=== PATIENT | male | born 1980 | race African-American/Black ===

== ENCOUNTER 2025-06-17 18:00 | Emergency (ER) | payer OTHER ==
[~2025-06-17] VITALS: Ht 185.4 cm; Wt 98.0 kg
[2025-06-17] MEDS ORDERED: MECLIZINE HCL25 MG PO (18:20)
[2025-06-17] MEDS ORDERED: MIRTAZAPINE15 MG PO (18:21)
[2025-06-17] MEDS ORDERED: CYCLOBENZAPRINE10 MG PO (19:42)
[2025-06-17] MEDS ORDERED: IBU800 MG PO (19:42)
[2025-06-17] MEDS ORDERED: CYCLOBENZAPRINE HCL 10 MG TAB PO ONE (19:45)
[2025-06-17] MEDS ORDERED: IBUPROFEN 800 MG TAB PO ONE (19:45)
[2025-06-17 20:02] VITALS: BP 131/103
== END 2025-06-17 20:04 | disposition home or self-care (01) ==
LOC: ED 18:00
DX: S46.911A Strain of unspecified muscle, fascia and tendon at shoulder and upper arm level, right arm, initial encounter (principal); W01.0XXA Fall on same level from slipping, tripping and stumbling without subsequent striking against object, initial encounter; Z91.041 Radiographic dye allergy status
CPT/HCPCS: 73030; 99283; A9270